=== PATIENT | female | born 1990 | race Native Hawaiian/Other Pacific Islander ===

== ENCOUNTER 2017-11-25 20:12 | Inpatient (IN) | payer OTHER ==
[2017-11-25 21:02] VITALS: BMI 22.6
[2017-11-25] MEDS ORDERED: Lactated Ringer's 1,000 ML IV PRN (21:03)
[2017-11-25 22:28] LABS: BASO % 0.1 % (0.0-2.0); EOS % 0.2 % (0.0-4.0); HEMOGLOBIN 11.3 g/dL (12.0-16.0); LYMPH # 2.7 K/uL (1.0-4.3); LYMPH % 26.2 % (20.0-40.0); MEAN CELL VOLUME 92.7 fl (81.0-99.0); MEAN CORPUSCULAR HGB CONC 33.5 g/dL (33.0-37.0); MEAN PLATELET VOLUME 8.3 fl (7.2-11.7); MONO # 0.7 K/uL (0.0-0.8); MONO % 7.2 % (0.0-10.0); NEUT # 6.8 K/uL (1.8-7.0); NEUT % 66.3 % (50.0-75.0); RBC 3.66 Mil/uL (3.80-5.20); RED CELL DISTRIBUTION WIDTH 13.8 % (11.5-14.5); WHITE BLOOD COUNT 10.3 K/uL (4.8-10.8)
[2017-11-26] MEDS ORDERED: Nalbuphine 20 mg/ml Inj (1 ml) IVP PRN (02:05)
[2017-11-26] MEDS: Lactated Ringer's 1,000 ML IV SCH ×2 (02:27→18:14)
--- NOTE | 2017-11-26 11:46 | OBPN ---
Datetime: 11/26/2017 11:29 IP Progress Impression: Reassuring heart rate IP Progress Plan: Continue present management; Induction; Cervical Ripening Contraction Comments Provider: q5-6min FHR - Baseline A Provider: 120s IP Progress Note Comment: Patient resting comfortably without complaints. Plan to continue cervical ripening with by mouth Cytotec. Discussed plan with patient and all patient questions answered. Mater nal well-being and well-being reassuring at this time. Vital Signs Provider: Reviewed; Within Normal Limits NICHD Accel Fetus A IP Provider: 15X15 FHR Category Provider Fetus A: Category I NICHD Variability Prov Fetus A: Moderate 6-25bpm Dilatation, Provider: 1 Effacement, Provider: 50 Station, Provider: -3 NICHD Decel Fetus A IP Provider: None
[2017-11-27] MEDS ORDERED: Fentanyl/Bupivacaine HCl 250 ML EPI ONE ×2 (07:40→08:59)
[2017-11-27] MEDS ORDERED: Lactated Ringer's 1,000 ML IV SCH (07:45)
[2017-11-27] MEDS: Lactated Ringer's 1,000 ML IV SCH ×2 (09:03→17:14)
[2017-11-27] MEDS ORDERED: Oxytocin 30 UNITS in Sodium Chloride 0.9% 500 ML IV ONE ×2 (11:00→21:45)
[2017-11-27] MEDS ORDERED: DiphenhydrAMINE 50 mg/ml Inj IVP PRN (16:34)
[2017-11-27] MEDS ORDERED: Lidocaine 1% Inj (20ml) ONE (19:28)
--- NOTE | 2017-11-27 20:45 | OBDS ---
DELIVERY PERSONNEL Anesthesiologist: Beth Breanne MATERNAL INFORMATION Delivery Anesthesia: Epidural Provider Comments: Uncomplicated spontaneous vaginal delivery of a viable male with BW of 265 0gms and scores of 9 and 9 over a secon degree perineal laceration which was repaired with 2-0 chromic. LABOR SUMMARY EDC: 12/06/2017 00:00 No. Babies in Womb: 1 Attempted: No LABOR INFORMATION Reason for Induction: Intrauterine Growth Retardation Cervical Ripening Agents: Cytotec @ Group B Beta Strep: Negative MEMBRANES Membranes Rupture Method: Artificial Rupture of Membranes: 11/27/2017 16:20 Amniotic Fluid Color: Clear Amniotic Fluid Amount: Moderate Amniotic Fluid Odor: Normal VAGINAL DELIVERY Laceration Extension: Second Degree Laceration Type: Perineal Laceration Repair Note: Repair of the laceration done under local anesthesia with 2-0 chromic under epidural and local anesthesia with 1% lidocaine with good cosmesis. BABY A INFORMATION Born in Route : No : N/A IDENTIFICATION/MEDS BABY A ID Band Number: [id number]
[2017-11-27] MEDS ORDERED: Benzocaine/Menthol SPRAY TOP PRN (20:48)
[2017-11-27] MEDS ORDERED: Oxycodone/Acetaminophen 5/325 mg Tab PO PRN (20:48)
[2017-11-28] MEDS ORDERED: Benzocaine/Menthol SPRAY TOP PRN (01:31)
[2017-11-28] MEDS ORDERED: Oxycodone/Acetaminophen 5/325 mg Tab PO PRN (01:31)
[2017-11-28] MEDS ORDERED: Lactated Ringer's 1,000 ML IV SCH (01:31)
[2017-11-28] MEDS ORDERED: Fentanyl/Bupivacaine HCl 250 ML EPI ONE (01:31)
[2017-11-28 06:45] LABS: BASO % 0.1 % (0.0-2.0); EOS % 0.1 % (0.0-4.0); HEMOGLOBIN 9.5 g/dL (12.0-16.0); LYMPH # 2.3 K/uL (1.0-4.3); MEAN CELL VOLUME 92.5 fl (81.0-99.0); MEAN CORPUSCULAR HEMOGLOBIN 31.4 pg (27.0-31.0); MEAN CORPUSCULAR HGB CONC 33.9 g/dL (33.0-37.0); MEAN PLATELET VOLUME 7.9 fl (7.2-11.7); MONO # 1.3 K/uL (0.0-0.8); MONO % 6.5 % (0.0-10.0); NEUT # 15.9 K/uL (1.8-7.0); NEUT % 81.3 % (50.0-75.0); RBC 3.02 Mil/uL (3.80-5.20); RED CELL DISTRIBUTION WIDTH 13.4 % (11.5-14.5); WHITE BLOOD COUNT 19.5 K/uL (4.8-10.8)
[2017-11-28] MEDS ORDERED: Multivitamin With Minerals Tab PO SCH (09:00)
[2017-11-28] MEDS: Multivitamin With Minerals Tab PO SCH (09:20)
--- NOTE | 2017-11-28 09:40 | OBPPN ---
Datetime: 11/28/2017 09:36 PP Pain Prov: Within normal limits PP Nausea Prov: Denies PP Flatus Prov: Yes PP BM Prov: No PP Breasts Prov: Normal PP Heart Prov: Normal PP Lungs Prov: Normal PP Abdomen/Uterus Prov: Normal PP Lochia Prov: Normal PP Vulva/Perineum Prov: Normal PP CVA Tenderness Prov: Normal PP Extremities Prov: Normal PP Impression Prov: Normal progression PP Plan Prov: Continue present management PP Progress Note Prov: She feels fine. Tired from being awake yesterday. H/H 07/15 A: S/P day 1 PLAN anticiapte dischage in AM Vital Signs Provider PP: Reviewed; Within Normal Limits
[2017-11-29] MEDS: Multivitamin With Minerals Tab PO SCH (08:48)
--- NOTE | 2017-11-29 10:06 | OBPPN ---
Datetime: 11/29/2017 10:04 PP Pain Prov: Within normal limits PP Nausea Prov: Denies PP Flatus Prov: Yes PP BM Prov: Yes PP Breasts Prov: Normal PP Heart Prov: Normal PP Lungs Prov: Normal PP Abdomen/Uterus Prov: Normal PP Lochia Prov: Normal PP Vulva/Perineum Prov: Normal PP CVA Tenderness Prov: Normal PP Extremities Prov: Normal PP Progress Prov: Normal PP Impression Prov: Normal progression PP Plan Prov: Discharge PP Progress Note Prov: She feels perineal pain. Only used Motrin. Ambualting; tolerating diet A: S/P perinela pain (no evid of infection) Anemia - asymptomatic PLAN: will dishcarge with Percoset/Motrin PRN FeSO4 Follow up in 6w Vital Signs Provider PP: Reviewed; Within Normal Limits
--- NOTE | 2017-11-29 10:09 | OBDCSUM ---
Datetime: 11/29/2017 10:06 Discharged to, Provider: Home Follow up at, Provider: [facility] Disch Instr Activity: Normal activity Disch Instr Diet: Regular Discharge Instructions, Provider: Routine instructions given Discharge Diagnosis, Provider: Term Delivered Follow up in weeks, Provider: 6w Disch Referrals: None Contraception discussed, Prov: Yes Disch Activity Restrictions: No sexual activity; Nothing in vagina - [place], tampons, douche Discharge Comment, Provider: PRN meds: Percoset/Motrin Aneimia - FeSO4 Discharge Diagnosis Prov Other: anemia
[2017-11-29 19:21] VITALS: BP 131/60; PULSE 80; RESP 19; TEMP 98.8; O2SAT 98
--- NOTE | 2017-11-30 09:42 | OBPN ---
Datetime: 11/27/2017 16:32 IP Progress Impression: Normal progression of labor; Reassuring heart rate IP Procedures: Artificial ROM; Sterile Vag Exam IP Progress Plan: Continue present management; Augmentation Membranes, Provider: Ruptured Amniotic Fluid Color, Provider: Clear Contraction Comments Provider: Q2-3 FHR - Baseline A Provider: 130 Gestation - Est Wks by US: 38.5 Presentation-Admit: Vertex IP Progress Note Comment: IUP at 38.5 wks being induced. S/P Cervidil, followed by cytotec. Currently on Pitocin for augmentation of labor. Cx- 4/80/-2, ARM - done- clear fluid Plan: Continue monitoring the progress of labor. Vital Signs Provider: Reviewed NICHD Accel Fetus A IP Provider: 15X15 FHR Category Provider Fetus A: Category I NICHD Variability Prov Fetus A: Moderate 6-25bpm Dilatation, Provider: 4 Effacement, Provider: 80 Station, Provider: -2 NICHD Decel Fetus A IP Provider: None
== END 2017-11-29 15:10 | disposition home or self-care (01) | DRG 775 ==
LOC: H.EROB2 20:12 → H.L&D 20:45 → H.OB/GYN 11-27 22:33
PROVIDERS: ADMIT Obstetrics & Gynecology Gynecology; ATTEND Obstetrics & Gynecology Gynecology
PROC: 4A1HXCZ Monitoring of Products of Conception, Cardiac Rate, External Approach (ICD-10-PCS; 2017-11-25)
PROC: 3E0P7VZ Introduction of Hormone into Female Reproductive, Via Natural or Artificial Opening (ICD-10-PCS; 2017-11-26)
PROC: 10E0XZZ Delivery of Products of Conception, External Approach (ICD-10-PCS; principal; 2017-11-27)
PROC: 0KQM0ZZ Repair Perineum Muscle, Open Approach (ICD-10-PCS; 2017-11-27)
PROC: 10907ZC Drainage of Amniotic Fluid, Therapeutic from Products of Conception, Via Natural or Artificial Opening (ICD-10-PCS; 2017-11-27)
DX: O36.5930 Maternal care for other known or suspected poor fetal growth, third trimester, not applicable or unspecified (principal); O70.1 Second degree perineal laceration during delivery; O90.81 Anemia of the puerperium; Z37.0 Single live birth; Z3A.38 38 weeks gestation of pregnancy